=== PATIENT | male | born 1995 | race African-American/Black ===

== ENCOUNTER 2018-12-07 13:42 | Emergency (ER) | payer MEDICAID, OTHER ==
[~2018-12-07] VITALS: Ht 175.3 cm; Wt 65.0 kg
[2018-12-07 13:53] VITALS: Ht 175.3 cm; Wt 65.0 kg
[2018-12-07] MEDS ORDERED: SOD CHLORIDE 0.9% 1,000 ML IV STA (14:51)
[2018-12-07] MEDS ORDERED: LORAZEPAM 0.5 MG TAB PO ONE (15:00)
--- NOTE | 2018-12-07 15:55 | ERD ---
ER Documentation Chief Complaint Chief Complaint Complains of having a seizure admits to smoking some weed HPI This is a 23-year-old man with a history of anxiety here for tremors to his upper extremities. He was triaged as having "seizures" but his only complaint is tremors that have been going on for the last hour. He states he has had these tremors in the past usually associated with anxiety. He is fully awake and alert and denies tonic-clonic seizure activity, he has had no loss of consciousness, no suicidal homicidal ideation, no previous psychiatric holds, and no prior psychiatric medications. He states he uses marijuana to help with his anxiety. Patient denies chest pain or shortness of breath, no fevers or chills ROS All systems reviewed and are negative except as per history of present illness. Medications Home Meds Active Scripts Lorazepam* (Ativan*) 0.5 Mg Tablet, 0.5 MG PO Q8H PRN for ANXIETY, #10 TAB Prov:KRISTINA MENDOZA MD 12/07/18 Allergies Allergies: Coded Allergies: No Known Allergy (Unverified , 12/07/18) PMhx/Soc Medical and Surgical Hx: pt denies Medical Hx, pt denies Surgical Hx Hx Alcohol Use: No Hx Substance Use: Yes (CANNABIS) Hx Tobacco Use: No Smoking Status: Never smoker FmHx Family History: No diabetes Physical Exam Vitals Vital Signs Date Temp Pulse Resp B/P (MAP) Pulse Ox O2 O2 Flow FiO2 Time Delivery Rate 12/07/18 98.6 87 17 121/68 99 Room Air 17:03 (85) 12/07/18 96.2 66 20 137/80 93 13:53 (99) Physical Exam GENERAL: Well-developed, well-nourished, well-hydrated, anxious, afebrile HEENT: Moist mucous membranes, pink conjunctiva, no cervical spine tenderness or step-off deformities, no goiter, no jaundice or icterus, extraocular movements intact without pain. No submandibular induration, and no pharyngeal erythema NEURO: Alert and oriented 3, cranial nerves II through XII intact bilaterally, pupils equal round reactive to light, no focal deficits or facial asymmetry, sensation intact distally Strength 5/5 in upper and lower extremities bila terally CARDIAC: Regular rate and rhythm, no murmurs rubs or gallops LUNGS: Clear bilaterally no wheezing crackles or stridor EXTREMITIES: No clubbing cyanosis or edema, calves are bilaterally symmetrical, no Homans sign, no popliteal cord sign. Distal pulses equal and bilateral PSYCH: Appears anxious Result Diagram: 12/07/18 1506 12/07/18 1506 Results 24 hrs Laboratory Tests Test 12/07/18 15:06 White Blood Count 7.6 10^3/ul Red Blood Count 5.24 10^6/ul Hemoglobin 15.9 g/dl Hematocrit 47.8 % Mean Corpuscular Volume 91.2 fl Mean Corpuscular Hemoglobin 30.3 pg Mean Corpuscular Hemoglobin Concent 33.3 g/dl Red Cell Distribution Width 12.2 % Platelet Count 258 10^3/UL Mean Platelet Volume 9.1 fl Immature Granulocytes % 0.300 % Neutrophils % 72.8 % Lymphocytes % 19.8 % Monocytes % 5.7 % Eosinophils % 1.1 % Basophils % 0.3 % Nucleated Red Blood Cells % 0.0 /100WBC Immature Granulocytes # 0.020 10^3/ul Neutrophils # 5.5 10^3/ul Lymphocytes # 1.5 10^3/ul Monocytes # 0.4 10^3/ul Eosinophils # 0.1 10^3/ul Basophils # 0.0 10^3/ul Nucleated Red Blood Cells # 0.0 10^3/ul Urine Color STRAW Urine Clarity CLEAR Urine pH 7.0 Urine Specific [place] 1.005 Urine Ketones NEGATIVE mg/dL Urine Nitrite NEGATIVE mg/dL Urine Bilirubin NEGATIVE mg/dL Urine Urobilinogen NEGATIVE mg/dL Urine Leukocyte Esterase NEGATIVE Tanvir/ul Urine Microscopic RBC 0 /HPF Urine Microscopic WBC 1 /HPF Urine Hemoglobin NEGATIVE mg/dL Urine Glucose NEGATIVE mg/dL Urine Total Protein 1+ mg/dl Sodium Level 144 mmol/L Potassium Level 4.0 mmol/L Chloride Level 102 mmol/L Carbon Dioxide Level 30 mmol/L Anion Gap 12 Blood Urea Nitrogen 8 mg/dl Creatinine 0.60 mg/dl Est Glomerular Filtrat Rate mL/min > 60 mL/min Glucose Level 109 mg/dl Calcium Level 10.1 mg/dl Total Bilirubin 0.7 mg/dl Direct Bilirubin 0.00 mg/dl Indirect Bilirubin 0.7 mg/dl Aspartate Amino Transf (AST/SGOT) 33 IU/L Alanine Aminotransferase (ALT/SGPT) 27 IU/L Alkaline Phosphatase 71 IU/L Total Protein 7.9 g/dl Albumin 4.8 g/dl Globulin 3.10 g/dl Albumin/Globulin Ratio 1.54 Salicylates Level < 1.0 mg/dl Urine Opiates Screen Negative Acetaminophen Level < 10.0 ug/ml Urine Barbiturates Negative Urine Amphetamines Screen Negative Urine Benzodiazepines Screen Negative Urine Cocaine Screen Negative Urine Cannabinoids Positive Ethyl Alcohol Level < 10.0 mg/dl Current Medications Medications Dose Sig/Shirley Start Time Status Last (Trade) Ordered Route PRN Stop Time Admin Dose Reason Admin Sodium 1,000 ml @ Q1H STAT 12/07/18 DC 12/07/18 Chloride 1,000 mls/hr IV 14:51 15:26 12/07/18 15:50 Lorazepam 0.5 mg ONCE ONCE 12/07/18 DC 12/07/18 (Ativan) PO 15:00 15:26 12/07/18 15:01 Procedures/MDM IV line was established patient was placed on residential monitor rhythm strip revealed a sinus rhythm at about 70 bpm with upright P and T waves. Patient was afebrile I administered 1 L normal saline IV and lorazepam 0.5 mg p.o. for anxiety. CBC and electrolyte were normal, liver function tests were normal, drug screen negative except for cannabinoids which the patient admitted to. Urinalysis negative for infection Patient feels better he has no psychosis or signs of severe psychiatric illness. He has no suicidal or homicidal ideation. I gave him both verbal and written discharge instructions and follow-up recommendations. Differential diagnoses considered, included but not limited to acute coronary syndrome, pulmonary embolism, aortic dissection, abdominal aortic aneurysm, sepsis, stroke, meningitis, encephalitis, pneumonia, appendicitis, cholecystitis, bowel obstruction, pyelonephritis, nephrolithiasis, cystitis, as well as metabolic, hematologic, and electrolyte abnormalities. As well as abscess, cellulitis, fractures, and dislocations. Patient feels much better at this time, and vital signs are normal, symptoms have improved. I did give strict instructions to return to the ED if symptoms continue or worsen, patient will otherwise follow-up with primary care physician. Patient understood instructions and agreed to plan. Disclaimer: Inadvertent spelling and grammatical errors are likely due to EHR/dictation software use and do not reflect on the overall quality of patient care. Also, please note that the electronic time recorded on this note does not necessarily reflect the actual time of the patient encounter. Departure Diagnosis: Primary Impression: Acute anxiety Additional Impression: Marijuana abuse Condition: Good KRISTINA MENDOZA MD Dec 07, 2018 15:55
[2018-12-07] MEDS ORDERED: LORA-441 PO (15:56)
[2018-12-07 17:03] VITALS: BP 121/68; PULSE 87; RESP 17
== END 2018-12-07 17:04 | disposition home or self-care (01) ==
LOC: E/R 13:42
DX: F41.9 Anxiety disorder, unspecified (principal); F12.10 Cannabis abuse, uncomplicated
CPT/HCPCS: 36415; 80053; 80307; 81001; 85025; J7030; Z7502; Z7610